=== PATIENT | male | born 1995 | race Two or more races ===

== ENCOUNTER → 2023-01-26 | Emergency (ER) | payer OTHER | END | disposition left against medical advice (07) | LOC: ER 18:48 | DX: Z53.21 Procedure and treatment not carried out due to patient leaving prior to being seen by health care provider (principal); Y08.89XA Assault by other specified means, initial encounter; Y93.89 Activity, other specified; Y92.89 Other specified places as the place of occurrence of the external cause; Y99.8 Other external cause status ==